=== PATIENT | female | born 1950 | race Caucasian/White ===

== ENCOUNTER 2020-09-11 15:03 | Outpatient (REF) | payer OTHER, SELFPAY ==
[2020-09-11 16:38] LABS: Hematocrit 38.8 % (37-47)
[2020-09-11 17:11] LABS: Alanine Aminotransferase 12 U/L (0-31); Albumin Level 4.3 g/dL (3.5-5.0); Alkaline Phosphatase 57 U/L (39-117); Anion Gap 12 (12-20); Aspartate Amino Transferase 21 U/L (5-31); Bilirubin Total 0.8 mg/dL (0.0-1.0); Blood Urea Nitrogen 16 mg/dL (9-16); Calcium 8.7 mg/dL (8.4-10.2); Carbon Dioxide 27 mmol/L (22-29); Chloride 103 mmol/L (96-108); Estimated Glomerular Filt Rate > 60; Glucose Random 91 mg/dL (60-115); Potassium 4.2 mmol/L (3.3-5.1); Sodium 138 mmol/L (135-145); Total Protein 6.6 g/dL (6.5-8.0)
[2020-09-11 17:13] LABS: Amphetamine Screen Urine Not Detected (Not Detect); Barbiturates, Urine Not Detected (Not Detect); Benzodiazepines Screen Urine Not Detected (Not Detect); Cannabinoid Screen Urine Not Detected (Not Detect); Cocaine Screen Urine Not Detected (Not Detect); Opiate Screen Urine Not Detected (Not Detect); Phencyclidine Screen Urine Not Detected (Not Detect)
[2020-09-13 05:56] LABS: Norfentanyl, Ur >500.0 ng/mL (<0.5)
== END 2020-09-11 15:04 | disposition home or self-care (01) ==
LOC: HO.HMGCLDS 15:03
PROVIDERS: PCP Internal Medicine; Visit Provider Internal Medicine
DX: E03.8 Other specified hypothyroidism (principal); J45.909 Unspecified asthma, uncomplicated; F33.9 Major depressive disorder, recurrent, unspecified; G56.22 Lesion of ulnar nerve, left upper limb; R52 Pain, unspecified
CPT/HCPCS: 80053; 80307; 80354; 84443; 85014; 85018

== ENCOUNTER 2020-11-28 15:07 | Emergency (ER) | payer OTHER, SELFPAY ==
--- NOTE | ~2020-11-28 | XR_ITS ---
EXAMINATION: XR WRIST, LEFT CLINICAL INFORMATION: Fall, trauma, pain COMPARISON: None TECHNIQUE: Left breast is imaged in 4 views. FINDINGS: There is no visible fracture or dislocation. The ulnar variance is neutral. There are degenerative changes first carpometacarpal joint and mild degenerative change at the triscaphe joint. The pronator quadratus fat pad appears normal. No destructive process. XR/XR wrist LT 2V IMPRESSION: 1. No fracture or dislocation. 2. Degenerative changes lateral carpus.
[2020-11-28 15:09] VITALS: BP 139/59; PULSE 83; RESP 18; TEMP 36.9; O2SAT 96
--- NOTE | 2020-11-28 15:32 | ED_ITS ---
HPI - Extremity Problem General Chief complaint: Extremity Injury, Upper Stated complaint: Wrist pain/Fall Time Seen by Provider: 11/28/20 15:32 Source: patient Mode of arrival: ambulatory History of Present Illness HPI Narrative: 70-year-old female here status post fall which she reports is mechanical in the back tub landing on her left wrist. She did strike her head but there was no loss of consciousness. She denies anticoagulation use. She tells me that she has no headache, vision changes, nausea, vomiting, neck pain, dizziness Related Data Home Medications Medication Instructions Recorded Confirmed albuterol sulfate 90 mcg/actuation INHALATION 05/03/20 11/15/20 aerosol inhaler Previous Rx's Medication Instructions Recorded bupropion HCl 300 mg 24 hr tablet, 300 mg PO QAM #90 tab 05/29/20 extended release citalopram 40 mg tablet 40 mg PO DAILY #90 tab 05/29/20 levothyroxine 125 mcg tablet 125 mcg PO DAILY #90 tab 10/18/20 montelukast 10 mg tablet 10 mg PO DAILY #90 tab 10/23/20 fentanyl 37.5 mcg/hour transdermal 1 patch TRANSDERMAL Q72H 30 Days 11/15/20 patch #10 ea Allergies Allergy/AdvReac Type Severity Reaction Status Date / Time ciprofloxacin [Cipro] Allergy Unknown rash, Verified 11/15/20 14:50 syncope mirtazapine [Remeron] Allergy Unknown unknown/?ra Verified 11/15/20 14:50 sh pneumococcal vaccine Allergy Unknown anaphylaxis Verified 11/15/20 14:50 procaine [From Novocain] Allergy Unknown syncope Verified 11/15/20 14:50 Sulfa (Sulfonamide Allergy Unknown unknown Verified 11/15/20 14:50 Antibiotics) Review of Systems Review of Systems: Yes all other systems are reviewed and are negative Constitutional: Constitutional: Reports no additional constitutional complaints, Denies body ache(s), Denies chills, Denies fever(s), Denies headache(s) and Denies weakness Eyes: Eyes: Reports no additional eye complaints and Denies change in vision ENT: Reports system reviewed and no additional complaints, except as documented, Denies dizziness, Denies headache(s), Denies nasal congestion, Denies nasal discharge and Denies neck pain Cardiovascular: Cardiovascular: Reports no additional cardiovascular complaints, Denies chest pain, Denies leg edema and Denies dyspnea Respiratory: Respiratory: Reports no additional respiratory complaints, Denies cough and Denies dyspnea Gastrointestinal: Gastrointestinal: Reports no additional gastrointestinal complaints, Denies abdominal pain, Denies diarrhea, Denies nausea and Denies vomiting Genitourinary: Genitourinary: Reports no additional female genitourinary complaints and Denies urinary incontinence Musculoskeletal: Musculoskeletal: Reports no additional musculoskeletal compl aints, Denies back pain, Reports arthralgias, Reports joint swelling, Reports limited range of motion, Denies neck pain, Denies numbness and Denies tingling Integumentary/Breasts: Skin/Breast: Reports system reviewed and no additional complaints, except as docu and Denies rash Neurologic: Reports system reviewed and no additional complaints, except as documented, Denies Abnormal speech present, Denies dizziness, Denies headache(s), Denies numbness, Denies tingling and Denies weakness PMFSH Past Medical History Attestation statement: The following information was validated with the patient. Source: old records reviewed and nursing notes reviewed Medical History Asthma Depression, major, recurrent Lesion of ulnar nerve, left upper limb Other specified hypothyroidism Pain management Surgical History History of bladder surgery History of hysterectomy History of repair of rotator cuff S/P lumpectomy of breast Family History Family History Father Lung cancer Mother Thyroid disease Sister Thyroid disease Breast cancer History of mastectomy Brother No problems noted. Daughter No problems noted. Daughter No problems noted. Daughter No problems noted. Daughter No problems noted. Social History Social History Advance Directives: No Advance Directives Information Provided: Yes Physical Exam Vital Signs: Vital Signs: Last Vital Signs Temp 98.4 F 11/28/20 15:09 Pulse 83 11/28/20 15:09 Resp 18 11/28/20 15:09 BP 139/59 L 11/28/20 15:09 Pulse Ox 96 11/28/20 15:09 Body Mass Index 0.0 Const: General: cooperative, healthy appearing, comfortable and no acute distress Orientation/consciousness: patient oriented x3 Limitations: no limitations HENMT: Head: Yes normal to inspection Ears: hearing grossly normal bilaterally General nose exam: Normal external nose present Face and sinus: Yes normal facial exam Mouth: Normal oral and palatal mucosa present Throat: Yes posterior oropharynx normal Eyes: General: appearance normal, both eyes and all related structures Pupils: Equal, round and reactive pupils present Neck: Neck: Yes normal visual inspection Chest: Chest palpation & inspection: normal inspection of the chest Resp: Effort & Inspection: normal respiratory effort Auscultation: clear to auscultation bilaterally Cardio: Rate: regular rate Rhythm: regular rhythm Peripheral pulses: Peripheral pulses 2+ throughout GI: Inspection: Yes normal to inspection Palpation (GI): Soft to palpation and nontender Auscultation: normal bowel sounds Back/Spine/Pelvis: Thoracic/Lumbar Spine: thoracic and lumbar spine normal to inspection Skin: General skin exam: no rashes or lesions noted Neuro: General: patient oriented x3, no focal motor deficits and normal sensation to monofilament Cranial nerves: Yes CN's II-XII intact bilaterally, Yes Equal, round and reactive pupils present, Yes Bilaterally intact EOM present, Yes Nystagmus not present, Yes Normal facial strength present and Yes Midline tongue present Cognition (Neuro): normal cognition Speech: No Abnormal speech present Gait exam (Neuro): Normal gait present Motor exam (neuro): 5/5 motor strength present throughout Sensory Exam: Normal double simultaneous stimulation for sensation Extrem: Other: Pain over the distal dorsal radius with mild swelling. There is some ecchymosis. No deformity. Pain with flexion and extension of the wrist. No pain in the hand General: Yes normal to inspection, Yes no pedal edema and Yes no calf tenderness Course Course Course Narrative: 70-year-old female here status post mechanical fall with left upper extremity pain will need x-rays. She did have a head strike that there was no loss of consciousness. She has a normal neurological exam and deferred a CT of the head. 1605-X-rays show no acute findings. Likely sprain. Placed in a wrist splint for comfort. Supportive care at home. Reviewed worrisome signs and symptoms of when to return to the emergency department. Comfortable discharge home. Procedures Procedure Narrative Procedure Narrative: wrist splint MDM - Extremity (Nontraumatic) Medical Records Attestation: I reviewed the patient's medical records. Lab Data Attestation: I reviewed the patient's lab results. Imaging Data left wrist splint: Attestation: I personally reviewed and interpreted this imaging study as follows: Radiologist's impression: EXAMINATION: XR WRIST, LEFT CLINICAL INFORMATION: Fall, trauma, pain COMPARISON: None TECHNIQUE: Left breast is imaged in 4 views. FINDINGS: There is no visible fracture or dislocation. The ulnar variance is neutral. There are degenerative changes first carpometacarpal joint and mild degenerative change at the triscaphe joint. The pronator quadratus fat pad appears normal. No destructive process. XR/XR wrist LT 2V IMPRESSION: 1. No fracture or dislocation. 2. Degenerative changes lateral carpus. Discharge Plan Discharge Clinical Impression: Sprain and strain of left wrist Patient Disposition: Home, Self-Care Instructions: Wrist Sprain (ED) Additional Instructions: Ice, elevation, wrist splint for comfort Prescriptions: No Action citalopram 40 mg tablet 40 mg PO DAILY Qty: 90 RF: 1 bupropion HCl 300 mg tablet extended release 24 hr 300 mg PO QAM Qty: 90 RF: 1 montelukast 10 mg tablet 10 mg PO DAILY Qty: 90 RF: 0 albuterol sulfate 90 mcg/actuation HFA aerosol inhaler inhalation RF: 0 fentanyl 37.5 mcg/hour patch 72 hour 1 patch transdermal Q72H 30 Days Qty: 10 RF: 0 levothyroxine 125 mcg tablet 125 mcg PO DAILY Qty: 90 RF: 0 Referrals: Carmine Donnelly MD [Primary Care Provider] - 2 days Stand Alone Forms: Work/School Release Interventions: ED Discharge Assessment Last Done: 11/28/20 16:47 Discharge Date/Time: 11/28/20 16:48
== END 2020-11-28 16:48 | disposition home or self-care (01) ==
PROVIDERS: Emergency Provider Emergency Medicine Emergency Medical Services; PCP Internal Medicine
DX: S63.502A Unspecified sprain of left wrist, initial encounter (principal); S66.912A Strain of unspecified muscle, fascia and tendon at wrist and hand level, left hand, initial encounter; W18.2XXA Fall in (into) shower or empty bathtub, initial encounter; Y93.E1 Activity, personal bathing and showering; Y92.031 Bathroom in apartment as the place of occurrence of the external cause; Y99.9 Unspecified external cause status
CPT/HCPCS: 29125; 73100; 99283

== ENCOUNTER 2021-04-01 13:04 | Outpatient (REF) | payer OTHER, SELFPAY ==
--- NOTE | ~2021-04-01 | XR_ITS ---
EXAMINATION: XR LUMBOSACRAL SPINE CLINICAL INFORMATION: Lumbar radiculopathy. COMPARISON: None TECHNIQUE: Three views of the lumbosacral spine. FINDINGS: Levocurvature of the lumbar spine centered at the L3 vertebral body. The lumbar lordosis is maintained. No acute fracture or subluxation. No loss of vertebral body height. Mild multilevel loss of intervertebral disc height with anterior endplate osteophytes, most prominent at L2-L3. Bilateral facet arthropathy at L5-S1. No lytic or blastic osseous lesion. Moderate stool burden. XR/XR lumbar spine 2-3V IMPRESSION: Levocurvature of the lumbar spine. No acute fracture or subluxation. Multilevel degenerative disc disease, most prominent at L2-L3. Bilateral facet arthropathy at L5-S1.
== END 2021-04-01 13:05 | disposition home or self-care (01) ==
LOC: HO.HMGCX 13:04
PROVIDERS: PCP Internal Medicine; Visit Provider Internal Medicine
DX: Z13.89 Encounter for screening for other disorder (principal)
CPT/HCPCS: 72100

== ENCOUNTER 2021-04-29 12:48 | Outpatient (REF) | payer OTHER, SELFPAY ==
[2021-04-29 13:50] LABS: MANUAL DIFF FLAG NO
[2021-04-29 13:54] LABS: Basophils Percent Auto 0.4 % (0-2); Eosinophils Absolute Auto 0.4 X10*3/uL (0.0-0.4); Eosinophils Percent Auto 7.6 % (0-4); Hematocrit 37.5 % (37-47); Hemoglobin 12.7 g/dl (12.0-16.0); Imm Gran Abs Auto 0.01 X10*3/uL (0.00-0.03); Imm Gran Pct Auto 0.2 % (0.0-0.4); Lymphocytes Percent Auto 37.4 % (20-40); Mean Corpuscular HGB Conc 33.9 g/dl (31.0-35.0); Mean Corpuscular Hemoglobin 30.8 pg (27.0-33.0); Mean Platelet Volume 9.6 fL (9.4-12.3); Monocytes Absolute Auto 0.6 X10*3/uL (0.1-1.2); Monocytes Percent Auto 10.4 % (2-11); Neutrophils Absolute Auto 2.4 X10*3/uL (2.0-8.3); Platelet Count 221 X10*3/uL (160-400); Red Blood Count 4.12 X10*6/uL (4.20-5.50); Red Cell Distribution Width 12.8 % (11.0-16.0); White Blood Count 5.4 X10*3/uL (4.8-10.8)
[2021-04-29 14:09] LABS: Alanine Aminotransferase 19 U/L (0-31); Albumin Level 4.4 g/dL (3.5-5.0); Alkaline Phosphatase 65 U/L (39-117); Anion Gap 10 (12-20); Aspartate Amino Transferase 27 U/L (5-31); Blood Urea Nitrogen 18 mg/dL (9-16); Calcium 9.2 mg/dL (8.4-10.2); Carbon Dioxide 29 mmol/L (22-29); Chloride 104 mmol/L (96-108); Estimated Glomerular Filt Rate > 60; Glucose Random 91 mg/dL (60-115); Potassium 4.4 mmol/L (3.3-5.1); Sodium 139 mmol/L (135-145); Total Protein 6.8 g/dL (6.5-8.0)
[2021-04-29 14:30] LABS: TSH reflex Free T4 4.69 uIU/mL (0.32-4.0)
[2021-04-29 15:02] LABS: Free T4 (Free Thyroxine) 0.94 ng/dL (0.71-1.85)
== END 2021-04-29 12:49 | disposition home or self-care (01) ==
LOC: HO.HMGCLDS 12:48
PROVIDERS: PCP Internal Medicine; Visit Provider Internal Medicine
DX: E03.8 Other specified hypothyroidism (principal); F33.9 Major depressive disorder, recurrent, unspecified; G56.22 Lesion of ulnar nerve, left upper limb; R52 Pain, unspecified; J45.909 Unspecified asthma, uncomplicated
CPT/HCPCS: 36415; 80053; 84439; 84443; 85025

== ENCOUNTER → 2021-05-02 09:22 | Outpatient (BNVA) | payer OTHER, SELFPAY | PROVIDERS: PCP Internal Medicine; Visit Provider Nurse Practitioner Family ==